=== PATIENT | male | born 1940 | race Caucasian/White ===

== ENCOUNTER 2024-10-08 08:50 | Emergency (ER) | payer MEDICARE, BC ==
[2024-10-08] MEDS ORDERED: Boostrix 0.5 ML (Tdap) VIAL (>/=7 yrs of age) ONE (09:08)
== END 2024-10-08 10:06 | disposition home or self-care (01) ==
LOC: CSHERS 08:50
DX: S51.811A Laceration without foreign body of right forearm, initial encounter (principal); S80.811A Abrasion, right lower leg, initial encounter; S80.211A Abrasion, right knee, initial encounter; T14.8XXA Other injury of unspecified body region, initial encounter; Z23 Encounter for immunization; W11.XXXA Fall on and from ladder, initial encounter
CPT/HCPCS: 90471; 90715